=== PATIENT | male | born 1965 | race Caucasian/White ===

== ENCOUNTER → 2020-05-13 | Outpatient (CLI) | payer MEDICARE, OTHER ==
[~2020-05-13] MED LIST: ATOR40TA70 PO; BRIM.2 BOTHEYE; CEFAZOLIN SODIUM 1000MG/VIAL ONE; DAPA10TA PO; DEXAMETHASONE 4MG/ML 1ML VIAL ONE; EPHEDRINE SULFATE 50MG/ML VIAL ONE; ERGO2000 PO; FENTANYL CITRATE/PF 50MCG/ML 2ML VIAL ONE; FERR325T6 PO; GABA800T97 PO; GLYCOPYRROLATE 0.2 MG/ML 2ML VIAL ONE; HYDR-4135 PO; LIDOCAINE HCL/PF 1% 10 MG/ML 5ML VIAL ONE; LOSA50TA41 PO; METOCLOPRAMIDE HCL 10MG/2ML VIAL ONE; MIDAZOLAM HCL 2 MG/2 ML VIAL ONE; NEOSTIGMINE METHYLSULFATE 1MG/ML 10 ML VIAL ONE; ONDANSETRON HCL 4MG/2ML INJ ONE; PHENYLEPHRINE HCL 10 MG/ML 1ML (IV VIAL) IV ONE; PIOG15TA66 PO; PROPOFOL 200MG/20ML VIAL IV ONE; ROCURONIUM BROMIDE 10MG/ML VIAL 5ML IV ONE; SEMA0.25 SQ; SITA1TBM7 PO; SODIUM CHLORIDE 0.9% 10ML VIAL ONE; SUCCINYLCHOLINE CHLORIDE 200MG/10ML IV ONE
== END | disposition home or self-care (01) ==
LOC: LAB 08:13
PROVIDERS: ATTEND Surgery Vascular Surgery
DX: Z20.828 Contact with and (suspected) exposure to other viral communicable diseases (principal); I65.29 Occlusion and stenosis of unspecified carotid artery
CPT/HCPCS: C9803; U0003

== ENCOUNTER → 2020-09-12 | Outpatient (CLI) | payer MEDICARE ==
[~2020-09-12] MED LIST changes: +AMLO10TA80 PO; +ASPI-1497 PO; -CEFAZOLIN SODIUM 1000MG/VIAL ONE; +CLOP75TA33 PO; -DEXAMETHASONE 4MG/ML 1ML VIAL ONE; +DOCU250C14 PO; -EPHEDRINE SULFATE 50MG/ML VIAL ONE; -FENTANYL CITRATE/PF 50MCG/ML 2ML VIAL ONE; -GLYCOPYRROLATE 0.2 MG/ML 2ML VIAL ONE; -HYDR-4135 PO; +HYDR100T26 PO; +LANTUSUD SUBCUT; -LIDOCAINE HCL/PF 1% 10 MG/ML 5ML VIAL ONE; +METF-873 PO; +METO25TA6 PO; -METOCLOPRAMIDE HCL 10MG/2ML VIAL ONE; -MIDAZOLAM HCL 2 MG/2 ML VIAL ONE; -NEOSTIGMINE METHYLSULFATE 1MG/ML 10 ML VIAL ONE; -ONDANSETRON HCL 4MG/2ML INJ ONE; -PHENYLEPHRINE HCL 10 MG/ML 1ML (IV VIAL) IV ONE; -PROPOFOL 200MG/20ML VIAL IV ONE; -ROCURONIUM BROMIDE 10MG/ML VIAL 5ML IV ONE; +SENN-257 PO; -SODIUM CHLORIDE 0.9% 10ML VIAL ONE; -SUCCINYLCHOLINE CHLORIDE 200MG/10ML IV ONE; +TOPUD PO
== END | disposition home or self-care (01) ==
LOC: LAB 07:32
PROVIDERS: ATTEND Surgery Vascular Surgery
DX: Z01.812 Encounter for preprocedural laboratory examination (principal); I65.29 Occlusion and stenosis of unspecified carotid artery; Z20.822 Contact with and (suspected) exposure to COVID-19
CPT/HCPCS: 87426

== ENCOUNTER → 2021-11-02 | Day surgery (SDC) | payer MEDICARE ==
[~2021-11-02] VITALS: Ht 167.6 cm; Wt 89.4 kg
[~2021-11-02] MED LIST changes: +ACETAMINOPHEN 325MG TABLET PO PRN; +AMLO10TA4 MT; -AMLO10TA80 PO; +AMLO5TAB88 PO; +ASPI-986 MT; +ATROPINE SULFATE 1MG/10ML SYR IV PRN; +ATROPINE SULFATE 1MG/10ML SYR ONE; -DOCU250C14 PO; +FENTANYL CITRATE/PF 50MCG/ML 2ML VIAL ONE; +HEPARIN SODIUM 1,000 UNIT/1ML VIAL IV ONE; +IODIXANOL 320MG/ML 100 ML BOTTLE IV ONE; +LIDOCAINE HCL 1% 10 MG/ML 10ML VIAL ONE; +LOSA50TA3 PO; -LOSA50TA41 PO; +METO-539 PO; -METO25TA6 PO; +MIDAZOLAM HCL 2 MG/2 ML VIAL ONE; +ONDANSETRON HCL 4MG/2ML INJ IV PRN; -SENN-257 PO; -SITA1TBM7 PO; -TOPUD PO; +TRIA1TAB94 MT
== END | disposition home or self-care (01) ==
LOC: CCL 06:43
PROVIDERS: ATTEND Specialist
DX: I65.22 Occlusion and stenosis of left carotid artery (principal); I10 Essential (primary) hypertension; E11.9 Type 2 diabetes mellitus without complications; E78.5 Hyperlipidemia, unspecified; I25.10 Atherosclerotic heart disease of native coronary artery without angina pectoris; Z79.899 Other long term (current) drug therapy; Z98.890 Other specified postprocedural states; Z20.822 Contact with and (suspected) exposure to COVID-19
CPT/HCPCS: 36222; 87426; C1725; C1760; C1769; C1887; C1893; C1894; J0461; J1644; J2250; J3010; J3490; Q9967

== ENCOUNTER 2022-09-19 06:37 | Day surgery (SDC) | payer MEDICARE ==
[~2022-09-19] VITALS: Ht 157.5 cm; Wt 89.8 kg
[~2022-09-19 06:37] MED LIST changes: -ACETAMINOPHEN 325MG TABLET PO PRN; -ASPI-1497 PO; -ATROPINE SULFATE 1MG/10ML SYR IV PRN; -ATROPINE SULFATE 1MG/10ML SYR ONE; -FENTANYL CITRATE/PF 50MCG/ML 2ML VIAL ONE; -HEPARIN SODIUM 1,000 UNIT/1ML VIAL IV ONE; -IODIXANOL 320MG/ML 100 ML BOTTLE IV ONE; -LIDOCAINE HCL 1% 10 MG/ML 10ML VIAL ONE; -MIDAZOLAM HCL 2 MG/2 ML VIAL ONE; -ONDANSETRON HCL 4MG/2ML INJ IV PRN
[2022-09-19] MEDS ORDERED: HEPARIN 1000 UNITS/ML 10ML ONE (08:11)
[2022-09-19] MEDS ORDERED: LIDOCAINE HCL/PF 1% 10 MG/ML 5ML VIAL ONE (08:11)
[2022-09-19] MEDS ORDERED: IODIXANOL 320MG/ML 100 ML BOTTLE IV ONE (08:11)
[2022-09-19] MEDS ORDERED: FENTANYL CITRATE/PF 50MCG/ML 2ML VIAL ONE (08:44)
[2022-09-19] MEDS ORDERED: MIDAZOLAM HCL 2 MG/2 ML VIAL ONE (08:44)
[2022-09-19] MEDS ORDERED: LIDOCAINE HCL/PF 2% 20MG/ML 5 ML/VIAL ONE (09:20)
[2022-09-19] MEDS ORDERED: LIDOCAINE HCL 1% 20ML VIAL (Pyxis) INJ ONE (09:23)
[2022-09-19] MEDS ORDERED: ACETAMINOPHEN 325MG TABLET PO PRN (10:15)
[2022-09-19] MEDS ORDERED: ONDANSETRON HCL 4MG/2ML INJ IV PRN (10:15)
[2022-09-19] MEDS ORDERED: ATROPINE SULFATE 1MG/10ML SYR IV PRN (10:15)
== END 2022-09-19 16:25 | disposition home or self-care (01) ==
LOC: CCL 06:37
PROVIDERS: ATTEND Specialist
DX: I73.9 Peripheral vascular disease, unspecified (principal); I25.10 Atherosclerotic heart disease of native coronary artery without angina pectoris; I10 Essential (primary) hypertension; E78.5 Hyperlipidemia, unspecified; E11.9 Type 2 diabetes mellitus without complications; Z79.82 Long term (current) use of aspirin; Z79.899 Other long term (current) drug therapy; Z98.890 Other specified postprocedural states
CPT/HCPCS: 36246; 75716; C1725; C1760; C1769; C1887; C1893; C1894; J1644; J2250; J3010; J3490; Q9967; Z7610; 75710; 99152; 99153; G0500